=== PATIENT | male | born 1970 | race Caucasian/White ===

== ENCOUNTER → 2017-04-26 | Emergency (ER) | payer MEDICAID ==
[2017-04-26 11:00] LABS: ADD MAN DIFF? NO
[2017-04-26 11:04] LABS: WHITE BLOOD COUNT 11.6 10^3/ul (4.8-10.8)
[2017-04-26 11:04] LABS: BASOPHILS % 0.3 % (0.0-2.0); EOSINOPHILS % 0.3 % (0.0-7.0); HEMATOCRIT 34.5 % (42.0-52.0); HEMOGLOBIN 11.9 g/dl (14.0-18.0); LYMPHOCYTES # 2.7 10^3/ul (0.8-2.9); LYMPHOCYTES % 23.4 % (15.0-51.0); MEAN CORPUSCULAR HEMOGLOBIN 29.4 pg (29.0-33.0); MEAN CORPUSCULAR HGB CONC 34.5 g/dl (32.0-37.0); MEAN CORPUSCULAR VOLUME 85.2 fl (82.0-101.0); MEAN PLATELET VOLUME 8.3 fl (7.4-10.4); MONOCYTES % 8.7 % (0.0-11.0); NEUTROPHIL # 7.8 10^3/ul (1.6-7.5); PLATELET COUNT 365 10^3/UL (140-415); RED BLOOD COUNT 4.05 10^6/ul (4.70-6.10); RED CELL DISTRIBUTION WIDTH 13.1 % (11.5-14.5)
[2017-04-26] MEDS: DIPHENHYDRAMINE 50 MG INJ IV (11:04)
[2017-04-26] MEDS: LORAZEPAM 2 MG INJ IV (11:05)
[2017-04-26] MEDS: HALOPERIDOL 5 MG INJ IV (11:05)
[2017-04-26 11:20] LABS: ALANINE AMINOTRANSFERASE 35 IU/L (13-69); ALBUMIN 4.2 g/dl (3.3-4.9); ALKALINE PHOSPHATASE 115 IU/L (42-121); ANION GAP 18 (8-16); ASPARTATE AMINO TRANSFERASE 34 IU/L (15-46); BILIRUBIN,INDIRECT 0.2 mg/dl (0-1.1); BILIRUBIN,TOTAL 0.2 mg/dl (0.2-1.3); BLOOD UREA NITROGEN 16 mg/dl (7-20); CALCIUM 9.3 mg/dl (8.4-10.2); CARBON DIOXIDE 25 mmol/L (21-31); CHLORIDE 99 mmol/L (97-110); CREATININE 0.81 mg/dl (0.61-1.24); GLUCOSE 102 mg/dl (70-220); SODIUM 139 mmol/L (135-144); TOTAL PROTEIN 7.7 g/dl (6.1-8.1)
[2017-04-26 11:25] LABS: ACETAMINOPHEN < 10.0 ug/ml (10.0-30.0); ETHANOL < 10.0 mg/dl; SALICYLATE < 1.0 mg/dl (5.0-30.0)
[2017-04-26 12:27] LABS: CANNABINOIDS Negative (NEGATIVE)
[2017-04-26 12:41] LABS: BARBITURATES Negative (NEGATIVE)
[2017-04-26 12:42] LABS: BENZODIAZEPINES Negative (NEGATIVE); COCAINE Negative (NEGATIVE); OPIATES Negative (NEGATIVE)
[2017-04-26 12:43] LABS: AMPHETAMINE/METHAMPHETAMINE POSITIVE (NEGATIVE)
== END | disposition home or self-care (01) ==
LOC: E/R 10:19
DX: F15.90 Other stimulant use, unspecified, uncomplicated (principal); F17.210 Nicotine dependence, cigarettes, uncomplicated; R40.2142 Coma scale, eyes open, spontaneous, at arrival to emergency department; R40.2222 Coma scale, best verbal response, incomprehensible words, at arrival to emergency department; R40.2362 Coma scale, best motor response, obeys commands, at arrival to emergency department
CPT/HCPCS: 36415; 80053; 80306; 80307; 85025; 96374; 96375; 99285-25

== ENCOUNTER 2017-06-29 20:53 | Emergency (ER) | payer MEDICAID ==
[2017-06-29] MEDS: LORAZEPAM 2 MG INJ IM (21:11)
== END 2017-06-30 03:50 | disposition home or self-care (01) ==
LOC: E/R 06-30 03:50
DX: F15.10 Other stimulant abuse, uncomplicated (principal); Z87.891 Personal history of nicotine dependence
CPT/HCPCS: 96372; 99284-25